=== PATIENT | male | born 1975 | race Asian ===

== ENCOUNTER 2016-05-12 13:35 | Emergency (ER) | payer OTHER ==
[~2016-05-12] VITALS: Ht 172.7 cm; Wt 77.1 kg
--- NOTE | 2016-05-12 14:11 | Emergency Room Report ---
History of Present Illness General Chief Complaint: General Complaint Source: EMS Present Illness HPI 40-year-old male presents emergency department complaining of chills since this a.m. in addition to being homeless. Patient denies fevers denies cough denies abdominal pain. Patient denies past medical history. Patient states he smokes tobacco and uses not. 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 Denies CP, Palpitations, LOC, AMS, dizziness, Changes in Vision, Sensation, paresthesias, or a sudden severe headache. Allergies: Coded Allergies: No Known Allergies (Unverified , 05/12/16) Patient History Past Medical History: see triage record Past Surgical History: none Pertinent Family History: none Social History: Reports: drug use - pt. admits to meth use, smoking - pt admits to smoking tobacco Reviewed Nursing Documentation: PMH: Agreed, PSxH: Agreed Nursing Documentation-PMH Past Medical History: Deferred Review of Systems All Other Systems: negative except mentioned in HPI Physical Exam Vital Signs Date Time Temp Pulse Resp B/P Pulse Ox O2 Delivery O2 Flow Rate FiO2 05/12/16 13:30 97.7 98 18 142/99 99 Room Air Sp02 EP Interpretation: reviewed, normal General Appearance: no apparent distress, alert, GCS 15, non-toxic Head: normocephalic, atraumatic Eyes: bilateral eye PERRL, bilateral eye normal inspection ENT: hearing grossly normal, normal pharynx, no angioedema, normal voice Neck: full range of motion, supple/symm/no masses Respiratory: chest non-tender, lungs clear, normal breath sounds, speaking full sentences Cardiovascular #1: regular rate, rhythm, no edema Gastrointestinal: normal bowel sounds, non tender, soft, no guarding, no rebound Rectal: deferred Musculoskeletal: back normal, gait/station normal, normal range of motion, non- tender, no calf tenderness Neurologic: alert, oriented x3, responsive, motor strength/tone normal, sensory intact, speech normal Psychiatric: judgement/insight normal, memory normal, mood/affect normal, no suicidal/homicidal ideation, anxious Skin: normal color, no rash, warm/dry, well hydrated Lymphatic: no adenopathy Medical Decision Making PA Attestation Dr. Jamison is my supervising Physician whom patient management has been discussed with. Diagnostic Impression: Primary Impression: Encounter for medical screening examination ER Course 40-year-old male presents emergency department complaining of chills since this a.m. in addition to being homeless. Patient denies fevers denies cough denies abdominal pain. Patient denies past medical history. Patient states he smokes tobacco and uses not. 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 Ddx considered but are not limited to AMS, ETOH, infection, Trauma/Fall, CVA, [place] , Psych, homelessness Vital signs: are WNL, pt. is afebrile H&PE are most consistent with need for medical screening examination. no acute injury or disease noted at this time. pt. is NAD, NON-toxic, able to answer questions appropriately, pt. is oriented, and no signs of trauma or focal neurological deficits. -Pt. is homeless ORDERS: none required at this time, the diagnosis is clinical ED INTERVENTIONS: None required at this time, pt is given list of homelessness resources. - Social Service consult was given. Pt. is stable for close outpatient follow up. DISCHARGE: At this time pt. is stable for d/c to home. Will provide printed patient care instructions, and any necessary prescriptions. Care plan and follow up instructions have been discussed with the patient prior to discharge. Last Vital Signs Date Time Temp Pulse Resp B/P Pulse Ox O2 Delivery O2 Flow Rate FiO2 05/12/16 13:30 97.7 98 18 142/99 99 Room Air Disposition: HOME, SELF-CARE Condition: Stable Referrals: [facility],REFERRING (PCP) Patient Instructions: Medical Screening Exam Additional Instructions: Take any previously prescribed medications as directed. Follow up with PCP in 3-5 days Return sooner to ED if new symptoms occur, or current symptoms become worse. Review list of transitional housing resources that was provided to you. *!* Review provided list of free or reduced cost health clinics for follow up * !* - Please note that this Emergency Department Report was dictated using [employer] weathe[employer]zing worker technology software, occasionally this can lead to erroneous entry secondary to interpretation by the dictation equipment. Kayla Orr May 12, 2016 14:11
[2016-05-12 14:23] VITALS: BP 142/99
[2016-05-12 15:30] VITALS: BP 125/80
[2016-05-12 16:19] VITALS: BP 125/80
== END 2016-05-12 16:19 | disposition home or self-care (01) ==
LOC: EDBD 13:35 → EMR 13:47
DX: Z00.00 Encounter for general adult medical examination without abnormal findings (principal); Z59.0 Homelessness; F15.10 Other stimulant abuse, uncomplicated
CPT/HCPCS: 99282